=== PATIENT | male | born 2000 | race Caucasian/White ===

== ENCOUNTER 2021-10-09 05:18 | Inpatient (IN) ==
[2021-10-09] MEDS ORDERED: KETOROLAC TROMETHAMINE 15 MG/ML VIAL IV STA (05:25)
[2021-10-09] MEDS ORDERED: ONDANSETRON INJ 2 MG/ML 2 ML VIAL IV STA (05:25)
[2021-10-09] MEDS ORDERED: SODIUM CHLORIDE 0.9% 500 ML IV STA (05:25)
--- NOTE | 2021-10-09 05:42 | Emergency Department Note ---
History of Present Illness General Chief complaint: Flank Pain Stated complaint: LEFT SIDED PAIN,GETTING WORSE,NAUSEA,CHILLS Time Seen by Provider: 10/09/21 05:25 History of Present Illness Maximum Pain Intensity: 7 This 21-year-old presents to the ER complaining of severe left flank pain Location: Left flank Quality: Sharp Severity: Severe Duration: Tonight Timing: Tonight Context: Patient was concerned and came in Modifying factors: better with nothing; worse with nothing Patient denies chest pain, dyspnea, fevers, trauma, loss of bowel bladder control, saddle anesthesia, leg weakness, IV drug abuse. No history of kidney stones. Home Medications Medication Instructions Recorded Confirmed Type oxycodone 5 mg tablet 5 mg PO Q6H PRN #20 tab 10/09/21 Rx tamsulosin 0.4 mg capsule (Flomax) 0.4 mg PO HS #14 cap 10/09/21 Rx Allergies Allergy/AdvReac Type Severity Reaction Status Date / Time No Known Allergies Allergy Unverified 10/09/21 08:15 Past Med/Surg History Medical History No acute medical problems Surgical History No pertinent past surgical history Social History Smoking Status: Never smoker Second Hand Exposure: No; Do You Dip or Chew Tobacco: No; Tobacco Cessation Education Requested by Patient: No Hx Alcohol Use: Yes Alcohol type: beer Hx Substance Use: No Preferred Language: Arabic Communication Ability: Effective Slot Floor Person Required: No Beliefs That Will Affect Care: None Current Living Situation: Alone Other Information That Helps Us Care for You: No Feels Safe at Home: Yes Safety Concerns: Feels Safe At This Time Review of Systems A total of 10 systems reviewed and were otherwise negative Physical Exam Vital Signs Vital Signs - 24 hr 10/09/21 05:22 10/09/21 06:56 10/09/21 09:09 Temperature 36.1 C L 36.8 C Temperature Source Temporal Artery Scan Oral Pulse Rate 110 H 88 Pulse Rate [Right Finger] 74 Pulse Rate from SpO2 Sensor Pulse Rhythm [Right Finger] Pulse Strength [Right Finger] Respiratory Rate 16 16 20 Respiratory Effort / Characteristics Non-Labored Spontaneous Respiratory Depth Normal Blood Pressure 154/104 H 112/64 Blood Pressure [Right Arm] 148/90 H Blood Pressure Mean 120 Blood Pressure Mean [Right Arm] 109 Blood Pressure Position [Right Arm] Sitting Pulse Oximetry 96 97 98 Oxygen Delivery Method Room Air Room Air Room Air Sepsis Recent Fever Within 48 Hours Yes Sepsis New/Unexplained Change in Mental Status No Sepsis Action Taken by Nursing No Action Required 10/09/21 12:31 10/09/21 13:08 10/09/21 13:10 Temperature Temperature Source Pulse Rate 61 59 L Pulse Rate [Right Finger] 76 Pulse Rate from SpO2 Sensor 60 60 Pulse Rhythm [Right Finger] Regular Pulse Strength [Right Finger] Normal Respiratory Rate 20 18 18 Respiratory Effort / Characteristics Non-Labored Respiratory Depth Normal Blood Pressure Blood Pressure [Right Arm] 136/76 Blood Pressure Mean Blood Pressure Mean [Right Arm] 96 Blood Pressure Position [Right Arm] Pulse Oximetry 98 96 96 Oxygen Delivery Method Room Air Sepsis Recent Fever Within 48 Hours Sepsis New/Unexplained Change in Mental Status Sepsis Action Taken by Nursing 10/09/21 13:20 10/09/21 13:30 10/09/21 13:40 Temperature Temperature Source Pulse Rate 62 65 89 Pulse Rate [Right Finger] Pulse Rate from SpO2 Sensor 62 63 87 Pulse Rhythm [Right Finger] Pulse Strength [Right Finger] Respiratory Rate 15 17 24 Respiratory Effort / Characteristics Respiratory Depth Blood Pressure 147/90 H Blood Pressure [Right Arm] Blood Pressure Mean 109 Blood Pressure Mean [Right Arm] Blood Pressure Position [Right Arm] Pulse Oximetry 96 97 97 Oxygen Delivery Method Sepsis Recent Fever Within 48 Hours Sepsis New/Unexplained Change in Mental Status Sepsis Action Taken by Nursing 10/09/21 13:50 10/09/21 14:00 Temperature Temperature Source Pulse Rate 63 65 Pulse Rate [Right Finger] Pulse Rate from SpO2 Sensor 63 64 Pulse Rhythm [Right Finger] Pulse Strength [Right Finger] Respiratory Rate 17 17 Respiratory Effort / Characteristics Respiratory Depth Blood Pressure 145/91 H Blood Pressure [Right Arm] Blood Pressure Mean 109 Blood Pressure Mean [Right Arm] Blood Pressure Position [Right Arm] Pulse Oximetry 96 97 Oxygen Delivery Method Sepsis Recent Fever Within 48 Hours Sepsis New/Unexplained Change in Mental Status Sepsis Action Taken by Nursing VITALS: Vitals are noted on the nurse's note and reviewed by myself. Vital signs stable. GENERAL: Pleasant male who appears in pain, in no acute distress, nondiaphoretic, well-developed well-nourished. SKIN: The skin was without rashes, erythema, edema, or bruising. There is no tenting of the skin. Capillary reflex less than 2 seconds. HEAD: Normocephalic atraumatic. EARS: External auditory canals clear, EYES: Pupils equal round and reactive to light and accommodation. Conjunctivae without injection, sclerae without icterus. Extraocular movements intact. NOSE: Patent, turbinates without inflammation or discharge. MOUTH: Mucous membranes moist. Pharynx without erythema or exudate. Uvula midline. Airway patent. Tongue does not deviate. NECK: Supple without nuchal rigidity. No lymphadenopathy. No thyromegaly. Cervical spine is nontender. No JVD. HEART: Regular rate and rhythm LUNGS: Clear to auscultation bilaterally without wheezes, rales or rhonchi. No retractions or accessory muscle use. ABDOMEN: Positive bowel sounds x 4. Normal tympanic percussion. Soft, nontender, without masses or organomegaly. Becker sign negative. No guarding or rebound tenderness. No CVA tenderness MUSCULOSKELETAL: No muscle atrophy, erythema, or edema noted. NEURO: Patient was alert and oriented to person place and time. Normal sensation to light and sharp touch. No focal neurological deficits. Course Administered Medications Acetaminophen (Acetaminophen 325 Mg Tab) 650 mg PO Q4H PRN PRN Reason: Pain or Fever Stop: 11/08/21 14:29 Last Admin: 10/09/21 18:07 Dose: 650 mg Documented by: [id number] Enoxaparin Sodium (Enoxaparin Inj 40 Mg/0.4 Ml Syr) 40 mg SQ Q24H KELVIN Stop: 11/08/21 14:59 Last Admin: 10/09/21 20:22 Dose: 40 mg Documented by: [id number] Ceftriaxone Sodium 2,000 mg/ (Dextrose) 70 mls @ 140 mls/hr IV Q24H KELVIN Stop: 10/19/21 14:59 Last Admin: 10/09/21 15:39 Dose: 140 mls/hr Documented by: [id number] Sodium Chloride (Nss 1000ml) 1,000 mls @ 125 mls/hr IV .Q8H KELVIN Stop: 11/08/21 14:44 Last Admin: 10/09/21 15:24 Dose: 125 mls/hr Documented by: [id number] Discontinued Medications Fentanyl Citrate (Fentanyl Citrate 100 Mcg/2 Ml Vial) 50 mcg IV Q15M PRN PRN Reason: Pain Stop: 10/23/21 12:13 Last Admin: 10/09/21 12:24 Dose: 50 mcg Documented by: [id number] Sodium Chloride (Nss) 500 mls @ 999 mls/hr IV .Q31M STA Stop: 10/09/21 05:55 Last Infusion: 10/09/21 06:11 Dose: 0 mls/hr Documented by: [id number] Admin: 10/09/21 05:37 Dose: 999 mls/hr Documented by: [id number] Sodium Chloride (Nss 1000ml) 1,000 mls @ 999 mls/hr IV .Q1H1M ONE Stop: 10/09/21 13:14 Last Admin: 10/09/21 12:24 Dose: 999 mls/hr Documented by: [id number] Ketorolac Tromethamine (Ketorolac Tromethamine 15 Mg/Ml Vial) 10 mg IV NOW STA Stop: 10/09/21 05:26 Last Admin: 10/09/21 05:36 Dose: 10 mg Documented by: [id number] Morphine Sulfate (Morphine Sulfate 4 Mg/Ml 1 Ml Carp\Vial) 4 mg IV NOW STA Stop: 10/09/21 06:47 Last Admin: 10/09/21 06:55 Dose: 4 mg Documented by: [id number] Ondansetron HCl (Ondansetron Inj 2 Mg/Ml 2 Ml Vial) 4 mg IV NOW STA Stop: 10/09/21 05:26 Last Admin: 10/09/21 05:36 Dose: 4 mg Documented by: [id number] Ondansetron HCl (Ondansetron 4 Mg Od Tab) 4 mg PO NOW STA Stop: 10/09/21 10:32 Last Admin: 10/09/21 10:35 Dose: 4 mg Documented by: [id number] Tamsulosin HCl (Tamsulosin Hcl 0.4 Mg Cap) 0.4 mg PO NOW ONE Stop: 10/09/21 06:46 Last Admin: 10/09/21 06:56 Dose: 0.4 mg Documented by: [id number] Medical Decision Making Medical Records Attestation: I reviewed the patient's medical records. Home Medications Current Medication List: was personally reviewed by me Laboratory Data Attestation: I reviewed the patient's lab results. Result diagrams: 10/09/21 05:35 10/09/21 05:35 Lab Results 10/09/21 10/09/21 10/09/21 Range/Units 05:35 05:35 05:35 WBC 16.17 H (4.8-10.8) K/uL RBC 4.80 (4.7-6.1) M/uL Hgb 14.9 (14.0-18.0) g/dL Hct 42.8 (42-52) % MCV 89.2 (80-100) fL MCH 31.0 (25-34) pg MCHC 34.8 (32-36) g/dL RDW Std Deviation 40.3 (36.4-46.3) fL RDW Coeff of Reji 12.4 (11.5-14.5) % Plt Count 282 (130-400) K/uL MPV 9.4 (7.4-10.4) fL Sodium 137 (136-145) mmol/L Potassium 3.8 (3.5-5.1) mmol/L Chloride 104 (98-107) mmol/L Carbon Dioxide 22 (21-32) mmol/L Anion Gap 11 (3-11) BUN 16 (6-23) mg/dl Creatinine 1.11 (0.6-1.4) mg/dl Est Cr Clr Drug Dosing 120.3 ml/min Est GFR ( Amer) 107.9 ml/min Est GFR (Non-Af Amer) 93.1 ml/min BUN/Creatinine Ratio 14.4 (10-20) Glucose 119 H (70-99(Fasting)) mg/dl Calcium 9.5 (8.5-10.1) mg/dl Urine Color Yellow Urine Appearance Cloudy A (Clear) Urine pH 5.5 (4.5-7.5) Ur Specific Lyman 1.026 (1.000-1.030) Urine Protein 1+ H (Negative) Urine Glucose (UA) Negative (Negative) Urine Ketones Trace H (Negative) Urine Blood 2+ H (Negative) Urine Nitrite Negative (Negative) Urine Bilirubin Negative (Negative) Urine Urobilinogen Negative (Negative) Ur Leukocyte Esterase Negative (Negative) Urine WBC (Auto) 1-5 (0-5) /hpf Urine RBC (Auto) 10-30 H (0-4) /hpf U Hyaline Cast (Auto) 0 (0-5) /lpf U Epithel Cells (Auto) >30 H (0-5) /lpf Urine Bacteria (Auto) 1+ H (Negative) Ur Renal Epithelial Cell Not Reportable Urine Crystals Not Reportable Calcium Oxalate Crystal Present A (None Prsent) Urine Mucus Present A (None Prsent) SARS-CoV-2, RNA, NAAT (NEGATIVE) 10/09/21 Range/Units 06:58 WBC (4.8-10.8) K/uL RBC (4.7-6.1) M/uL Hgb (14.0-18.0) g/dL Hct (42-52) % MCV (80-100) fL MCH (25-34) pg MCHC (32-36) g/dL RDW Std Deviation (36.4-46.3) fL RDW Coeff of Reji (11.5-14.5) % Plt Count (130-400) K/uL MPV (7.4-10.4) fL Sodium (136-145) mmol/L Potassium (3.5-5.1) mmol/L Chloride (98-107) mmol/L Carbon Dioxide (21-32) mmol/L Anion Gap (3-11) BUN (6-23) mg/dl Creatinine (0.6-1.4) mg/dl Est Cr Clr Drug Dosing ml/min Est GFR ( Amer) ml/min Est GFR (Non-Af Amer) ml/min BUN/Creatinine Ratio (10-20) Glucose (70-99(Fasting)) mg/dl Calcium (8.5-10.1) mg/dl Urine Color Urine Appearance (Clear) Urine pH (4.5-7.5) Ur Specific Lyman (1.000-1.030) Urine Protein (Negative) Urine Glucose (UA) (Negative) Urine Ketones (Negative) Urine Blood (Negative) Urine Nitrite (Negative) Urine Bilirubin (Negative) Urine Urobilinogen (Negative) Ur Leukocyte Esterase (Negative) Urine WBC (Auto) (0-5) /hpf Urine RBC (Auto) (0-4) /hpf U Hyaline Cast (Auto) (0-5) /lpf U Epithel Cells (Auto) (0-5) /lpf Urine Bacteria (Auto) (Negative) Ur Renal Epithelial Cell Urine Crystals Calcium Oxalate Crystal (None Prsent) Urine Mucus (None Prsent) SARS-CoV-2, RNA, NAAT NEGATIVE (NEGATIVE) Imaging Data Attestation: I personally reviewed and interpreted this imaging study as follows: MDM Narrative Prior records/ancillary studies reviewed. Triage Nursing notes reviewed. Additional history obtained from nursing The patient's history was concerning for flank pain. Differential diagnosis: Etiologies such as renal colic, appendicitis, diverticulitis, mesenteric ische silvano, aortic pathology, infections, inflammatory bowel disease, PUD, biliary pathology, UTI, as well as others were entertained. Physical examination findings: As above. ER treatment provided: Toradol, Zofran, IV fluids, Flomax, morphine On reassessment the patient felt better. Diagnostic interpretation by me: The labs revealed leukocytosis. Urinalysis revealed There was no sign of UTI. Imaging studies: Preliminary Findings Only See Final Report For Complete Findings CT ABDOMEN & PELVIS Without Contrast: Obstructive 5 x 4 x 4 mm calculus within the left ureterovesicular junction (not definitively seen on credit collections manager imaging). Associated with this is moderate to severe left renal hydronephrosis with dilatation of the left renal collecting system, most prominently the left renal pelvis. Nonobstructive left calculus within the left renal pelvis measuring 4 mm. Additional nonobstructive left renal calculi noted. Normal appendix. No other acute findings. Radiologist: Dirk Yañez MD Study ready at 05:57 and initial results transmitted at 06:44 Consultation: Medicine was consulted. They request urology be consulted for admission. I spoke with Dr. Hurst from urology and will evaluate for possible admission. It appears that the patient has isolated renal colic from a left sided stone. Patient was medicated as above. He had moderate to severe left renal hydro-. Medicine was consulted. He will be evaluated for admission. By the evaluation outlined above emergent etiologies such as appendicitis, diverticulitis, mesenteric ischemia, aortic pathology, infections, inflammatory bowel disease, PUD, biliary pathology, UTI, as well as others were deemed relatively unlikely. The pt informed about the findings as listed above. All questions were answered and pleased with the treatment. Case signed out to Dr. De La Cruz pending urology evaluation at the end of my shift in stable condition. The chart was completed utilizing [employer] Speech voice recognition software. Grammatical errors, random word insertions, pronoun errors, and incomplete sentences are an occassional consequence of this system due to software limitations, ambient noise, and hardware issues. Any formal questions or concerns about the content, text, or information contained within the body of this dictation should be directly addressed to the physician press assistant for clarification. Impression & Plan Renal colic on left side, Ureterolithiasis, Hydronephrosis Discharge Plan Visit Data Chief Complaint: Flank Pain Stated Complaint: LEFT SIDED PAIN,GETTING WORSE,NAUSEA,CHILLS ED Provider: Anson De La Cruz ED Midlevel Provider: Senait Marinelli Discharge Problem: Renal colic on left side, Ureterolithiasis, Hydronephrosis Patient Disposition: Home - Self-Care Condition: Good Discharge Instructions Interventions: ED Discharge Assessment Last Done: 10/09/21 14:30 Discharge Problem: Hydronephrosis Qualifiers: Hydronephrosis type: with ureteral calculous obstruction Qualified Code(s): N13.2 - Hydronephrosis with renal and ureteral calculous obstruction
[2021-10-09 05:45] LABS: Hematocrit (blood only) 42.8 % (42-52); Hemoglobin 14.9 g/dL (14.0-18.0); Mean Corpuscular Hgb Conc 34.8 g/dL (32-36); Mean Corpuscular Volume 89.2 fL (80-100); Mean Platelet Volume 9.4 fL (7.4-10.4); Platelet Count 282 K/uL (130-400); RDW Coefficient of Variation 12.4 % (11.5-14.5); RDW Standard Deviation 40.3 fL (36.4-46.3); White Blood Count 16.17 K/uL (4.8-10.8)
[2021-10-09 05:58] LABS: Appearance Urine Cloudy (Clear); Bilirubin Urine Negative (Negative); Blood Urine 2+ (Negative); Color Urine Yellow; Epithelial Cell Urine Auto >30 /lpf (0-5); Glucose Urine UA Negative (Negative); Ketones Urine Trace (Negative); Leukocyte Esterase Urine Negative (Negative); Nitrite Urine Negative (Negative); Protein Urine 1+ (Negative); Specific Gravity Urine 1.026 (1.000-1.030); Urobilinogen Urine Negative (Negative); pH Urine 5.5 (4.5-7.5)
[2021-10-09 06:06] LABS: BUN Creatinine Ratio 14.4 (10-20); Calcium 9.5 mg/dl (8.5-10.1); Creatinine Clr Calc Pharmacy 120.3 ml/min; Est GFR (African American) 107.9 ml/min; Est GFR (Non-African American) 93.1 ml/min; Potassium 3.8 mmol/L (3.5-5.1)
[2021-10-09 06:21] LABS: Calcium Oxalate Crystals Urine Present (None Prsent); Mucus Urine Present (None Prsent)
[2021-10-09 06:22] LABS: Bacteria Urine Automated 1+ (Negative); Cast Urine Automated 0 /lpf (0-5)
[2021-10-09] MEDS ORDERED: TAMSULOSIN HCL 0.4 MG CAP PO ONE (06:45)
[2021-10-09] MEDS ORDERED: MoRPHine SULFATE 4 MG/ML 1 ML CARP\\VIAL IV STA (06:46)
--- NOTE | 2021-10-09 07:37 | Emergency Department Note ---
ED Visit Note In the emergeI received this patient in change of shift signout from Senait Marinelli PA-C. The patient is awaiting urology evaluation. I discussed the case with Jeaneth who is on-call for urology. Dr. Hurst was consulted and they will evaluate the patient in the emergency department. The patient is comfortable this time. The patient was evaluated by department. His laboratory and radiographic studies were reviewed. The patient does seem to be amenable to outpatient follow-up at this time. I do agree with this assessment. The patient was started on a pain medication. He was encouraged to follow-up with urology and call to schedule an appointment. He was also encouraged to continue using Motrin and Tylenol for mild pain and return to the emergency department immediately if symptoms change worsen or the need arises. Specifically I did recommend he return if he develops severe pain vomiting fever or any other worrisome symptoms. The patient did have an episode of syncope upon standing after discharge. The patient was laid back into the bed. He was given some Gatorade to drink. He was reevaluated and was feeling much better. The patient was still able to be discharged to home. [id number]: I discussed this case with Dr. Hurst who is on for urology. He will follow the patient in consultation. 1255: I discussed this case with Dr. Song who is on-call for the [facility] hospitalist group. They will evaluate the patient in the emergency department. They did request an EKG given the syncopal episode. EKG was obtained in the emergency department. My interpretation is normal sinus rhythm at 64 bpm. There is no ectopy. There is no acute ST segment abnormalities noted. . : Hydronephrosis Qualifiers: Hydronephrosis type: with ureteral calculous obstruction Qualified Code(s): N13.2 - Hydronephrosis with renal and ureteral calculous obstruction
--- NOTE | 2021-10-09 07:42 | CT Scan Report ---
ABDOMEN AND PELVIS CT WITHOUT CONTRAST CT DOSE: 396.66 mGy.cm HISTORY: Acute left-sided flank pain with nausea left flank pain, ? stone TECHNIQUE: Multiaxial CT images of the abdomen and pelvis were performed without contrast. A dose lo wering technique was utilized adhering to the principles of ALARA. COMPARISON STUDY: None. FINDINGS: Clear lung bases. No pneumatosis or pneumoperitoneum. The imaged inferior cardiac chambers are unrema rkable. Limited evaluation of the solid abdominal organs without the use of IV contrast. The spleen i s enlarged measuring up to 14.9 cm in length. Unremarkable pancreas, gallbladder, adrenal glands and liver. Normal right kidney. There is severe left-sided hydronephrosis with moderate hydroureter. There is an obstructing 7 x 4 x 4 mm calculus within the left ureterovesicular junction. 4 mm layering calculus within the left renal pelvis. 5 mm calculus of the interpolar left kidney. There are 2 large calculi noted within the inferior pole left kidney measuring 1.8 and 1.6 cm respectively. Mild perinephric an d periureteral stranding. Decompressed urinary bladder. Unremarkable prostate. Aorta and IVC are unre markable. No adenopathy. No bowel obstruction or bowel wall thickening. No ascites or mesenteric inflammation. Normal appendix . Mild gynecomastia. Mild endplate degenerative changes of the lower thoracic and upper lumbar spine. No acute fracture. IMPRESSION: 1. Severe left-sided hydronephrosis with moderate hydroureter secondary to an obstructing 7 x 4 x 4 m m calculus within the left ureterovesicular junction. 2. 4 mm calculus of the left renal pelvis with additional large nonobstructing left renal calculi. ACT 112: Negative or not required by law. The above report was generated using voice recognition software. It may contain grammatical, syntax o r spelling errors. Electronically signed by: Renard Anthony M.D. 10/09/2021 7:41 AM
[2021-10-09] MEDS ORDERED: ONDANSETRON 4 MG OD TAB PO STA (10:31)
--- NOTE | 2021-10-09 11:48 | Urology Consultation ---
Date of Consultation October 09, 2021 Assessment & Plan (1) Ureterolithiasis: (2) Hydronephrosis: (3) Renal colic on left side: 21yo M who presented with severe left flank pain and was found to have a calculus within the left UVJ with severe left-sided hydronephrosis with moderate hydroureter. - Plan of care and imaging reviewed with Dr. Hurst, on-call urologist. - Pt is afebrile, VSS, non-toxic appearing. - Labs reviewed - Wbc 16.17, Creatinine 1.11 - Urinalysis not overly suspicious for infection, UC&S pending. - Discussed options for acute stone management with cystoscopy and stent placement. Outpatient options for conservative measures with max expulsion medical therapy and symptom control were also discussed. - Discussed stone passage rates and possibility of spontaneous passage given stone size and location. - Risks/benefits of each discussed. - Patient prefers outpatient trial of passage with max expulsion therapy and monitoring of symptoms. - Will plan to f/u with our service in 1-2 weeks for definitive stone management and follow-up with discussion of procedure given he does not pass the stone in the meantime. - Recommend discharge with flomax, pain control, and urine strainer. - Encouraged liberal hydration and to strain all urine. - Reviewed in detail signs/symptoms that would warrant return to the hospital, patient verbalized an understanding. - Patient agreeable to plan, all questions were answered. - On discharge in ED, patient stood up and had a near syncopal episode. - Hospitalist service was consulted and pt was admitted for further evaluation. - No intervention planned for today. - Continue hydration, pain management, Flomax, and straining of all urine. - Will make NPO at midnight and will reassess in AM. - Will continue to follow. Supervising Physician Co-Signing Physician Notes I have discussed Mr. Magana's case with ESPERANZA Hernandez and agree with the above documentation. There appears to be a narrow, obstructing stone in the distal ureter, just at the junction with the bladder. There is no evidence of infection. His pain can be controlled we had discussed be reasonable to give him a chance to pass a stone spontaneously. Unfortunately he had a syncopal episode as well as return of pain prior to going home. If he is still having pain on 10/10, it would be reasonable to discuss stone treatment/stent placement. He has additional stone burden up in his left kidney, as well as findings that raise suspicion for UPJ obstruction. He may be a candidate for pyeloplasty in the future, however this can be discussed with him once he is through this acute stone event. He is n.p.o. at midnight in anticipation of possible intervention on 10/10. History of Present Illness Reason for Consultation: kidney stone Requesting Physician: Dr. De La Cruz History of Present Illness 21yo M with no significant past medical history who reported to the ED this morning with severe left flank pain. A CT abdomen pelvis was obtained and remarkable for a calculus within the left UVJ with severe left-sided hydronephrosis with moderate hydroureter. On presentation - Afebrile, Wbc 16.17, Creatinine 1.11. Urinalysis with 2+blood, negative nitrite, negative leukocytes, 1-5WBC, 10-30RBC, 1+Bacteria. Urine culture pending. Covid test negative. He was treated with IVF, analgesics, and antiemetics. Urology consulted for stone management. CTAP IMPRESSION: 1. Severe left-sided hydronephrosis with moderate hydroureter secondary to an obstructing 7 x 4 x 4 mm calculus within the left ureterovesicular junction. 2. 4 mm calculus of the left renal pelvis with additional large nonobstructing left renal calculi. Pt examined at bedside in the ED. Awake, resting in bed on arrival. No acute distress. Reports left flank pain, currently rates 4/10. Pain has improved significantly with pain medication. Denies fever or chills. No nausea or vomiting at present. He does report vomiting once overnight when the pain first started. Voiding without issue. Some urinary urgency and frequency. Denies hematuria. Some mild dysuria. Feels he is emptying his bladder. Denies prior hx of kidney stones. He does report that as a child he had "an issue with his ureter" but was unsure of any further details. He denies prior surgeries or seeing a Urologist. Denies hx of kidney or bladder issues. Denies pertinent family hx. Offers no additional complaints at time of exam. Allergies Allergy/AdvReac Type Severity Reaction Status Date / Time No Known Allergies Allergy Unverified 10/09/21 08:15 Home Medications Medication Instructions Recorded Confirmed Type oxycodone 5 mg tablet 5 mg PO Q6H PRN #20 tab 10/09/21 Rx tamsulosin 0.4 mg capsule (Flomax) 0.4 mg PO HS #14 cap 10/09/21 Rx Patient History Medical History No acute medical problems Surgical History No pertinent past surgical history Social History Smoking Status: Never smoker Second Hand Exposure: No; Do You Dip or Chew Tobacco: No; Tobacco Cessation Education Requested by Patient: No Hx Alcohol Use: Yes Alcohol type: beer Hx Substance Use: No Preferred Language: Kinyarwanda Communication Ability: Effective Lumber Checker Required: No Beliefs That Will Affect Care: None Current Living Situation: Alone Other Information That Helps Us Care for You: No Feels Safe at Home: Yes Safety Concerns: Feels Safe At This Time Review of Systems Review of Systems: All systems reviewed & are unremarkable except as noted in HPI & below Physical Exam Constitutional: well developed and well nourished; no acute distress and not ill appearing Neck: normal visual inspection Respiratory: normal respiratory effort and able to speak in complete sentences; no labored breathing and no audible wheezes Gastrointestinal (Abdomen): Inspection/Auscultation: abdomen normal to inspection; abdomen not distended Percussion/Palpation: abdomen soft; abdomen nontender and no guarding Musculoskeletal: Head/Neck/Chest: normocephalic Skin: No visible rashes or lesions to exposed skin areas Neurologic: moves all extremities and awake Psychiatric: Orientation: alert, oriented x 3 and cooperative Genitourinary: no CVA tenderness Results & Data ([facility]) Vital Signs (Past 12 Hours) Vital Signs Temp Pulse Pulse Resp BP BP Pulse Ox 10/09/21 09:09 36.8 C 88 20 112/64 98 10/09/21 06:56 74 16 148/90 H 97 10/09/21 05:22 36.1 C L 110 H 16 154/104 H 96 PG Care Time/CCT Total # of Minutes Spent Total Time Spent with Patient: Total time spent is greater than 50% in coordination of care (as documented) at patient's floor/unit and/or counseling patient: Coding Level of Care Code 29770 Inpt Consult Level 3 Diagnoses Ureterolithiasis N20.1 Hydronephrosis N13.2 Hydronephrosis type: with ureteral calculous obstruction Renal colic on left side N23 (1) Hydronephrosis Hydronephrosis type: with ureteral calculous obstruction Qualified Code(s): N13.2 - Hydronephrosis with renal and ureteral calculous obstruction
[2021-10-09] MEDS ORDERED: SODIUM CHLORIDE 0.9% 1000ML 1,000 ML IV ONE (12:14)
[2021-10-09] MEDS ORDERED: fentaNYL citrate 100 MCG/2 ML VIAL IV PRN (12:14)
--- NOTE | 2021-10-09 13:59 | History & Physical Report ---
Date of Service October 09, 2021 Assessment & Plan (1) Ureterolithiasis: Plan: -WBC 16.17, creatinine 1.11. Urinalysis not overly suspicious for infection, urine C&S pending. -CTAP showed severe left sided hydronephrosis and moderate hydroureter secondary to an obstructing 7 x 4 x 4 mm calculus with left ureterovesical junction. 4 mm calculus of the left renal pelvis with additional large nonobstructing left renal calculi. -Urology was consulted and has seen patient, recommending flomax, pain control, and urine strainer. -Tylenol and Toradol for pain control. -Started on Rocephin for possible infection/in anticipation of potential need for stent. -N.p.o. midnight. -NS IVF for maintenance. (2) Pre-syncope: Plan: -In the setting of pain, dehydration. Patient states he felt dizzy and nauseous upon standing, did not fall, lose consciousness. -EKG revealed normal sinus rhythm. -Echo ordered. Plan: Patient seen and examined, chart reviewed, case discussed with Paula Whyte and I agree with the assessment and plan as above except as otherwise noted General: A&Ox3. NAD. Cooperative. Appears uncomfortable HEENT: Atraumatic, normocephalic. Vision/hearing grossly intact. Pulm: CTAB A&P. -wheezes, -rales, -rhonchi. Symmetrical chest rise. No increase in work of breathing. No respiratory distress. Cardiac: RRR, -mrg. Radial pulses intact and symmetrical. Abdominal: Left flank pain, no rebound, with left CVA tenderness. No right-sided tenderness. No involuntary guarding. Labs and images reviewed Raj is a 21-year-old male who presents with left-sided abdominal pain and who was found on CT to have severe left-sided hydronephrosis, moderate hydroureter, and an obstructing 7 x 4 x 4 mm calculus at the left UVJ. Additional 4 mm calculus in left renal pelvis. Does have a leukocytosis to 16 without vomiting and UA with 2+ blood, 1+ bacteria. ?contamination with epis and demargination, will add empiric coverage with rocephin UC pending., possible stend placement tomorrow. NPO at midnight, discussed with Urology. Continue fluids and flomax. History of Present Illness Chief Complaint: Nephrolithiasis with near syncope Primary Care Provider: [facility] Patient is a previously healthy 21-year-old male who presents today with severe left flank pain and was found to have calculus within the left UVJ with severe left-sided hydronephrosis with moderate hydroureter. Urology was consulted and saw patient, recommend discharge with Flomax, pain control and urine strainer. On discharge, patient stood up and had a near syncopal episode. Patient states he felt dizzy and nauseous, but did not pass out. Patient was assisted back onto the bed and giving Gatorade, which he was able to keep down. Patient is feeling much better. Hospitalist service was consulted for evaluation and admission. EKG was crested which shows normal sinus rhythm, 64 bpm, no ectopy, no acute ST segment abnormalities. Patient states he has had occasional moments similar to this upon standing after being seated for some time. Denies cardiac history, denies chest pain, palpitations, shortness of breath, headache, dizziness. States he was feeling quite nauseous and experiencing mid pain at that time. Allergies Allergy/AdvReac Type Severity Reaction Status Date / Time No Known Allergies Allergy Unverified 10/09/21 08:15 Home Medications Medication Instructions Recorded Confirmed Type oxycodone 5 mg tablet 5 mg PO Q6H PRN #20 tab 10/09/21 Rx tamsulosin 0.4 mg capsule (Flomax) 0.4 mg PO HS #14 cap 10/09/21 Rx Past Med/Surg History Medical History No acute medical problems Surgical History No pertinent past surgical history Social History Smoking Status: Never smoker Second Hand Exposure: No; Do You Dip or Chew Tobacco: No; Tobacco Cessation Education Requested by Patient: No Hx Alcohol Use: Yes Alcohol type: beer Hx Substance Use: No Preferred Language: Frisian Communication Ability: Effective Spa Receptionist Required: No Beliefs That Will Affect Care: None Current Living Situation: Alone Other Information That Helps Us Care for You: No Feels Safe at Home: Yes Safety Concerns: Feels Safe At This Time Review of Systems Review of Systems: Constitutional: No fever, sweats or chills Eyes: No diplopia, no worsening or blurred vision ENT: normal hearing, no trouble swallowing Respiratory: No cough, sputum, dyspnea at rest or on exertion Cardiovascular: No chest pain, tightness or palpitations Abdomen: No pain, nausea, vomiting, diarrhea or constipation Musculoskeletal: No joint pain, calf pain, swelling Neurologic: No weakness, numbness/tingling, or balance problems Psychiatric: No anxiety or depression Skin: No rash or itch Physical Exam Physical Exam: General: awake, alert, no apparent distress Head: Normocephalic, atraumatic ENT: PERRL, EOMI, no pharyngeal exudate, mucous membranes moist Chest: Clear to auscultation, on room air, no adventitious breath sounds Cardiac: Regular rate and rhythm, no murmur, no JVD, normal peripheral pulses, good capillary refill Abdominal: (+) L CVA tenderness. NABS x 4 quadrants, soft, nontender to palpation, no rebound, guarding or tenderness Extremities: Normal inspection, no peripheral edema or erythema, calfs nontender to palpation Psych: Normal mood and affect Neuro: AAO x 3, strength intact bilaterally and rated 5/5, no motor deficits, speech is clear, no peripheral sensory deficits Skin: no rash or erythema Results & Data Results & Data ([facility]) Vital Signs (Past 12 Hours) Vital Signs Temp Pulse Pulse Resp BP BP Pulse Ox 10/09/21 12:31 76 20 136/76 98 10/09/21 09:09 36.8 C 88 20 112/64 98 10/09/21 06:56 74 16 148/90 H 97 10/09/21 05:22 36.1 C L 110 H 16 154/104 H 96 Laboratory Results Abnormal lab results 10/09/21 10/09/21 10/09/21 Range/Units 05:35 05:35 05:35 WBC 16.17 H (4.8-10.8) K/uL Glucose 119 H (70-99(Fasting)) mg/dl Urine Appearance Cloudy A (Clear) Urine Protein 1+ H (Negative) Urine Ketones Trace H (Negative) Urine Blood 2+ H (Negative) Urine RBC (Auto) 10-30 H (0-4) /hpf U Epithel Cells (Auto) >30 H (0-5) /lpf Urine Bacteria (Auto) 1+ H (Negative) Calcium Oxalate Crystal Present A (None Prsent) Urine Mucus Present A (None Prsent) Diagnostic Findings Abdomen/Pelvis CT 10/09/21 05:[address] WITHOUT CONTRAST CT DOSE: 396.66 mGy.cm HISTORY: Acute left-sided flank pain with nausea left flank pain, ? stone TECHNIQUE: Multiaxial CT images of the abdomen and pelvis were performed without contrast. A dose lowering technique was utilized adhering to the principles of ALARA. COMPARISON STUDY: None. FINDINGS: Clear lung bases. No pneumatosis or pneumoperitoneum. The imaged inferior cardiac chambers are unremarkable. Limited evaluation of the solid abdominal organs without the use of IV contrast. The spleen is enlarged measuring up to 14.9 cm in length. Unremarkable pancreas, gallbladder, adrenal glands and liver. Normal right kidney. There is severe left-sided hydronephrosis with moderate hydroureter. There is an obstructing 7 x 4 x 4 mm calculus within the left ureterovesicular junction. 4 mm layering calculus within the left renal pelvis. 5 mm calculus of the interpolar left kidney. There are 2 large calculi noted within the inferior pole left kidney measuring 1.8 and 1.6 cm respectively. Mild perinephric and periureteral stranding. Decompressed urinary bladder. Unremarkable prostate. Aorta and IVC are unremarkable. No adenopathy. No bowel obstruction or bowel wall thickening. No ascites or mesenteric inflammation. Normal appendix. Mild gynecomastia. Mild endplate degenerative changes of the lower thoracic and upper lumbar spine. No acute fracture. IMPRESSION: 1. Severe left-sided hydronephrosis with moderate hydroureter secondary to an obstructing 7 x 4 x 4 mm calculus within the left ureterovesicular junction. 2. 4 mm calculus of the left renal pelvis with additional large nonobstructing left renal calculi. Medications Administered Current Medications Fentanyl Citrate (Fentanyl Citrate 100 Mcg/2 Ml Vial) 50 mcg IV Q15M PRN PRN Reason: Pain Stop: 10/23/21 12:13 Last Admin: 10/09/21 12:24 Dose: 50 mcg Documented by: ECG Additional Comments: Normal sinus rhythm Normal ECG No previous ECGs available Code Status & VTE Plan Code Status Full code PG Care Time/CCT Total # of Minutes Spent Total Time Spent with Patient: Total time spent is greater than 50% in coordination of care (as documented) at patient's floor/unit and/or counseling patient: Coding Level of Care Code None Diagnoses Ureterolithiasis N20.1 Pre-syncope R55
[2021-10-09] MEDS ORDERED: cefTRIAXone SODIUM 1,000 MG in DEXTROSE 5% 50 ML IV SCH (14:30)
[2021-10-09] MEDS ORDERED: LACTATED RINGER'S 1,000 ML IV SCH (14:30)
[2021-10-09] MEDS ORDERED: KETOROLAC TROMETHAMINE 10 MG TABLET PO PRN (14:30)
[2021-10-09] MEDS ORDERED: ONDANSETRON INJ 2 MG/ML 2 ML VIAL IV PRN (14:30)
[2021-10-09] MEDS ORDERED: POLYETHYLENE (MIRALAX) 17 GM PACK PO PRN (14:30)
[2021-10-09] MEDS: SODIUM CHLORIDE 0.9% 1000ML 1,000 ML IV SCH ×2 (15:24→23:37)
--- NOTE | 2021-10-09 15:31 | Electrocardiogram Report ---
Test Reason : Blood Pressure : / mmHG Vent. Rate : 064 BPM Atrial Rate : 064 BPM P-R Int : 148 ms QRS Dur : 086 ms QT Int : 416 ms P-R-T Axes : 058 043 047 degrees QTc Int : 429 ms Normal sinus rhythm Normal ECG No previous ECGs available Confirmed by Brendan Diaz ([id number]) on 10/09/2021 3:31:13 PM Referred By: REFERRED SELF Confirmed By:Brendan Diaz
[2021-10-09] MEDS: cefTRIAXone SODIUM 2,000 MG in DEXTROSE 5% 50 ML IV SCH (15:39)
[2021-10-09] MEDS: ACETAMINOPHEN 325 MG TAB PO PRN ×2 (18:07→21:38)
[2021-10-09] MEDS: ENOXAPARIN INJ 40 MG/0.4 ML SYR SQ SCH (20:22)
[2021-10-10] MEDS: ACETAMINOPHEN 325 MG TAB PO PRN (06:31)
[2021-10-10 06:45] LABS: Basophils # (auto) 0.01 K/uL (0-0.2); Basophils % (auto) 0.1 %; Hematocrit (blood only) 37.4 % (42-52); Hemoglobin 12.7 g/dL (14.0-18.0); Immature Granulocytes # (auto) 0.02 K/uL (0.00-0.02); Immature Granulocytes % (auto) 0.2 %; Lymphocytes # (auto) 1.25 K/uL (1.2-3.4); Lymphocytes % (auto) 11.2 %; Mean Corpuscular Hemoglobin 30.3 pg (25-34); Mean Corpuscular Volume 89.3 fL (80-100); Mean Platelet Volume 9.4 fL (7.4-10.4); Monocytes # (auto) 0.82 K/uL (0.11-0.59); Monocytes % (auto) 7.3 %; Neutrophils % (auto) 81.2 %; Platelet Count 198 K/uL (130-400); RDW Coefficient of Variation 12.4 % (11.5-14.5); Red Blood Count 4.19 M/uL (4.7-6.1)
[2021-10-10 07:12] LABS: BUN Creatinine Ratio 6.2 (10-20); Calcium 8.5 mg/dl (8.5-10.1); Creatinine Clr Calc Pharmacy 91.5 ml/min; Est GFR (African American) 77.5 ml/min; Est GFR (Non-African American) 66.8 ml/min; Potassium 3.7 mmol/L (3.5-5.1)
[2021-10-10] MEDS: SODIUM CHLORIDE 0.9% 1000ML 1,000 ML IV SCH ×2 (08:00→19:08)
--- NOTE | 2021-10-10 08:35 | XCELERA ---
[id number]
--- NOTE | 2021-10-10 08:39 | Urology Progress Note ---
Date of Service October 10, 2021 Assessment & Plan (1) Ureterolithiasis: (2) Hydronephrosis: (3) Renal colic on left side: Plan: 21yo M who presented with severe left flank pain and was found to have a calculus within the left UVJ with severe left-sided hydronephrosis with moderate hydroureter. Patient had elected outpatient trial of passage, but had a near syncopal episode in the ED yesterday at discharge and was admitted by hospital medicine for further evaluation. - No stone passage noted overnight. - Still with left flank pain, has been managing with PO Tylenol. - Remains afebrile, VSS, non-toxic appearing. - Labs reviewed - White count 11.20, Creatinine up to 1.46 today (1.11 yesterday) - Continue to trend - Urinalysis not overly suspicious for infection, urine C&S pending - Continues on IV Ceftriaxone - Discussed options for acute stone management with cystoscopy, stent placement, possible stone treatment verse trial of passage with maximum expulsion therapy and symptom control. Risks/benefits of each discussed. Ureteral stent were di scussed as well as well as post-operative issues and pain management. - Patient prefers to proceed with surgical intervention. - Findings reviewed with Dr. Julien. Given his persistent left flank pain and [place] in the context of an obstructing left UVJ stone, will proceed with OR for cystoscopy, left retrograde pyelogram, left ureteral stent placement, possible ureteroscopy, laser lithotripsy/stone treatment depending on findings. - Risks and benefits to be reviewed with patient by Dr. Julien. - OR notified. Covered with scheduled IV Ceftriaxone. Covid test negative. - Keep NPO. - Strain all urine. - Continue supportive care and pain management. - Will continue to follow. Admission and Anticipated Discharge Date Admission Date: October 09, 2021 Subjective Pt examined at bedside this AM. Awake, resting in bed on arrival. No acute distress. Still with left flank pain, rates pain 1/10 at present. Managing pain with PO Tylenol. Denies stone passage. Has been NPO. Voiding without issues. No hematuria, some dysuria. Denies nausea or vomiting. No fever or chills. Denies dizziness/lightheadedness. Review of Systems Constitutional: as per Subjective / HPI Gastrointestinal: as per Subjective / HPI Genitourinary: + as per Subjective / HPI Physical Exam Constitutional: well developed and well nourished; no acute distress and not ill appearing Neck: normal visual inspection Respiratory: normal respiratory effort and able to speak in complete sentences; no labored breathing and no audible wheezes Gastrointestinal (Abdomen): Inspection/Auscultation: abdomen normal to inspection; abdomen not distended Musculoskeletal: Head/Neck/Chest: normocephalic Skin: No visible rashes or lesions to exposed skin areas Neurologic: moves all extremities and awake Psychiatric: Orientation: alert, oriented x 3 and cooperative Genitourinary: no CVA tenderness Results & Data ([facility]) Vital Signs (Past 12 Hours) Vital Signs Temp Pulse Pulse Resp BP Pulse Ox 10/10/21 07:04 36.5 C 93 H 18 133/72 97 10/10/21 03:30 37.4 C 89 18 147/89 H 97 10/09/21 23:09 36.9 C 84 18 133/78 98 10/09/21 22:18 56 L PG Care Time/CCT Total # of Minutes Spent Total Time Spent with Patient: Total time spent is greater than 50% in coordination of care (as documented) at patient's floor/unit and/or counseling patient: Coding Level of Care Code 03981 Subseq Hosp Care Lvl 2 Diagnoses Ureterolithiasis N20.1 Hydronephrosis N13.2 Hydronephrosis type: with ureteral calculous obstruction Renal colic on left side N23 (1) Hydronephrosis Hydronephrosis type: with ureteral calculous obstruction Qualified Code(s): N13.2 - Hydronephrosis with renal and ureteral calculous obstruction
--- NOTE | 2021-10-10 11:40 | Anesthesiology Consultation ---
Date of Service October 10, 2021 Assessment & Plan (1) Encounter for pre-operative examination: Chart Review Chart Review: Acceptable Risk for Surgery and Patient NOT seen in Pre Admission Testing Consults Requested none History Surgery Operation Date: 10/10/21 07:50 Proposed Procedures p Cystoscopy, Retrograde Pyelogram, Left Stent Placement, Possible Ureteroscopy, Laser Lithotripsy Stone Treatment - Edilberto Julien MD Height/Weight Height: 6 ft 2 in Weight: 86.1 kg Allergies Allergy/AdvReac Type Severity Reaction Status Date / Time No Known Allergies Allergy Unverified 10/09/21 08:15 Medications Home Medications Medication Instructions Recorded Confirmed Last Taken oxycodone 5 mg tablet 5 mg PO Q6H PRN #20 tab 10/09/21 Unknown tamsulosin 0.4 mg capsule (Flomax) 0.4 mg PO HS #14 cap 10/09/21 Unknown Active Medications Generic Name Dose Route Start Last Admin Trade Name Freq PRN Reason Stop Dose Admin Acetaminophen 650 mg 10/09/21 14:30 10/10/21 06:31 Acetaminophen 325 Mg Tab PO 11/08/21 14:29 650 mg Q4H PRN Administration Pain or Fever Enoxaparin Sodium 40 mg 10/09/21 15:00 10/09/21 20:22 Enoxaparin Inj 40 Mg/0.4 Ml Syr SQ 11/08/21 14:59 40 mg Q24H KELVIN Administration Ceftriaxone Sodium 2,000 mg/ 70 mls @ 140 mls/hr 10/09/21 15:00 10/09/21 15:39 Dextrose IV 10/19/21 14:59 Infused Q24H KELVIN Infusion Sodium Chloride 1,000 mls @ 125 mls/hr 10/09/21 14:45 10/10/21 08:00 Nss 1000ml IV 11/08/21 14:44 125 mls/hr .Q8H KELVIN Administration Past Medical History Medical History Anemia Renal colic on left side Past Surgical History Surgical History No pertinent past surgical history Social History Smoking Status: Never smoker Do You Dip or Chew Tobacco: No Hx Alcohol Use: Yes Alcohol type: beer alcohol intake frequency: a few times a month Hx Substance Use: No substance use type: does not use Physical Exam Vital Signs Last Vital Signs Temp 36.9 C 10/10/21 11:08 Pulse 83 10/10/21 11:08 Resp 18 10/10/21 11:08 BP 146/72 H 10/10/21 11:08 Pulse Ox 97 10/10/21 11:08 Testing Laboratory Results 10/10/21 06:29 10/10/21 06:29 Urine Color Yellow 10/09/21 05:35 Urine Appearance Cloudy (Clear) A 10/09/21 05:35 Urine pH 5.5 (4.5-7.5) 10/09/21 05:35 Ur Specific [place] 1.026 (1.000-1.030) 10/09/21 05:35 Urine Protein 1+ (Negative) H 10/09/21 05:35 Urine Glucose (UA) Negative (Negative) 10/09/21 05:35 Urine Ketones Trace (Negative) H 10/09/21 05:35 Urine Nitrite Negative (Negative) 10/09/21 05:35 Ur Leukocyte Esterase Negative (Negative) 10/09/21 05:35 Urine WBC (Auto) 1-5 /hpf (0-5) 10/09/21 05:35 Urine RBC (Auto) 10-30 /hpf (0-4) H 10/09/21 05:35 U Hyaline Cast (Auto) 0 /lpf (0-5) 10/09/21 05:35 U Epithel Cells (Auto) >30 /lpf (0-5) H 10/09/21 05:35 Urine Bacteria (Auto) 1+ (Negative) H 10/09/21 05:35 Other Testing ABDOMEN AND PELVIS CT WITHOUT CONTRAST CT DOSE: 396.66 mGy.cm HISTORY: Acute left-sided flank pain with nausea left flank pain, ? stone TECHNIQUE: Multiaxial CT images of the abdomen and pelvis were performed without contrast. A dose lowering technique was utilized adhering to the principles of ALARA. COMPARISON STUDY: None. FINDINGS: Clear lung bases. No pneumatosis or pneumoperitoneum. The imaged inferior cardiac chambers are unremarkable. Limited evaluation of the solid abdominal organs without the use of IV contrast. The spleen is enlarged measuring up to 14.9 cm in length. Unremarkable pancreas, gallbladder, adrenal glands and liver. Normal right kidney. There is severe left-sided hydronephrosis with moderate hydroureter. There is an obstructing 7 x 4 x 4 mm calculus within the left ureterovesicular junction. 4 mm layering calculus within the left renal pelvis. 5 mm calculus of the interpolar left kidney. There are 2 large calculi noted within the inferior pole left kidney measuring 1.8 and 1.6 cm respectively. Mild perinephric and periureteral stranding. Decompressed urinary bladder. Unremarkable prostate. Aorta and IVC are unremarkable. No adenopathy. No bowel obstruction or bowel wall thickening. No ascites or mesenteric inflammation. Normal appendix. Mild gynecomastia. Mild endplate degenerative changes of the lower thoracic and upper lumbar spine. No acute fracture. IMPRESSION: 1. Severe left-sided hydronephrosis with moderate hydroureter secondary to an obstructing 7 x 4 x 4 mm calculus within the left ureterovesicular junction. 2. 4 mm calculus of the left renal pelvis with additional large nonobstructing left renal calculi. ACT 112: Negative or not required by law. The above report was generated using voice recognition software. It may contain grammatical, syntax or spelling errors. Electronically signed by: Renard Anthony M.D. 10/09/2021 7:41 AM Dictated:10/09/21 0735 Transcribed: 10/09/21 0735
[2021-10-10] MEDS ORDERED: ePHEDrine sulfate 50 MG/ML AMP IV PRN (11:41)
[2021-10-10] MEDS ORDERED: HYDROmorphone INJ 1 MG/ML SYRINGE IV PRN (11:41)
[2021-10-10] MEDS ORDERED: ATROPINE SULFATE 0.1 MG/ML 10ML SYR IV PRN (11:41)
[2021-10-10] MEDS ORDERED: MEPERIDINE HCL 25 MG/ML CARP/VIAL IV PRN (11:41)
[2021-10-10] MEDS ORDERED: fentaNYL citrate 100 MCG/2 ML VIAL IV PRN (11:41)
[2021-10-10] MEDS ORDERED: ONDANSETRON INJ 2 MG/ML 2 ML VIAL IV PRN (11:41)
[2021-10-10] MEDS ORDERED: LABETALOL HCL IV 5 MG/ML 20ML IV PRN (11:41)
[2021-10-10] MEDS ORDERED: PHENYLEPHRINE 100MCG/ML 5ML SYR IV PRN (11:41)
[2021-10-10] MEDS ORDERED: PROPOFOL IV EMULSION 10 MG/ML 20 ML VIAL IV ONE (12:15)
[2021-10-10] MEDS ORDERED: ONDANSETRON INJ 2 MG/ML 2 ML VIAL ONE (12:15)
[2021-10-10] MEDS ORDERED: DEXAMETHASONE SOD INJ 4 MG/ML VIAL ONE (12:15)
[2021-10-10] MEDS ORDERED: LIDOCAINE 2% 2 ML VIAL/AMP(20MG/ML) INFIL ONE (12:15)
[2021-10-10] MEDS ORDERED: fentaNYL citrate 100 MCG/2 ML VIAL ONE (12:15)
[2021-10-10] MEDS ORDERED: MIDAZOLAM HCL 1 MG/ML 2ML VIAL ONE (12:16)
--- NOTE | 2021-10-10 13:10 | Operative Report ---
PG Post Operative Report Pre & Post Diagnosis Operation Date: 10/10/21 07:50 Pre-Op Diagnosis: (1) Ureterolithiasis: (2) Hydronephrosis: (3) Renal colic on left side: Post-Op Diagnosis: (1) Ureterolithiasis: (2) Hydronephrosis: (3) Renal colic on left side: I identified the patient and participated in the time-out.: Yes Procedure Operation Date: 10/10/21 07:50 Actual Procedures p Cystoscopy, Retrograde Pyelogram, Left Stent Placement, Ureteroscopy(Left) - Edilberto Julien MD Surgeon Herson Julien MD Hydroelectric Mechanic none Estimated Blood Loss 0 Findings Consistent with Post-Op Diagnosis Specimens none Description of Procedure The patient was identified in the preoperative holding area, appropriate informed consents were reviewed and completed and the patient was transferred to the operative suite. Upon arrival, appropriate antibiotics and anesthesia were administered and the patient was placed in dorsal lithotomy position and prepped and draped in sterile fashion. To begin the case to pass a 22 English cystoscope with 30 degree lens. Inspection revealed a healthy-appearing urethra and prostate. His bladder was also healthy. There was some erythema and mounding around his left distal ureter. No stones were seen within the bladder or protruding from the orifice. Turned attention of this left UO and cannulated with a sensor wire and a 5 English open-ended catheter. Immediately after passage of the wire there is discharge of a significant amount of small stones and stone debris. After draining this out of the bladder I withdrew the cystoscope and reentered with a semirigid ureteroscope. I guided this into the distal left ureter which revealed no stones but some inflammation just at the UVJ. I advanced the scope further inside healthy-appearing ureter. After advancing to close to the level of the vessels I performed a retrograde pyelogram through the scope. This confirmed my suspicion of a left UPJ obstruction with clear demonstration of a tight UPJ. There was no significant distention of the ureter. I concluded the case by reevaluating the distal ureter and identifying no other stones. I placed a 6 English by 26 cm double-J stent and concluded. He was reversed of anesthesia and taken to the PACU in stable condition. There were no complications. Findings - 1. stone debris irrigated out of the distal left ureter 2. 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 Any exceptions are noted below.
[2021-10-10] MEDS ORDERED: DIATRIZOATE MEGLUMINE 30% 100ML VIAL INSTIL PRN (13:16)
--- NOTE | 2021-10-10 13:36 | Fluoroscopy Report ---
FL retrograde includes kub HISTORY: 21 years-old Male LT left-sided cystourethrogram COMPARISON: CT abdomen pelvis 10/09/2021 TECHNIQUE: 4 spot fluoroscopic images of the left abdomen were obtained utilizing 16 seconds fluorosc opy time FINDINGS: Retrograde injection of contrast into the left ureter demonstrates severe hydronephrosis with narrowi ng at the ureteropelvic junction. Subsequent images demonstrate deployment of a left ureteral stent w hich appears to be in satisfactory positioning. IMPRESSION: Fluoroscopic assistance as above. ACT 112: Negative or not required by law. The above report was generated using voice recognition software. It may contain grammatical, syntax o r spelling errors. Electronically signed by: Renard Anthony M.D. 10/10/2021 1:35 PM
--- NOTE | 2021-10-10 13:37 | Anesthesiology Progress Note ---
Date of Service October 10, 2021 Anesthesia Post Procedure Vital Signs Vital Signs: Temp Pulse Pulse Pulse Resp BP BP 10/10/21 13:30 69 15 140/83 10/10/21 13:20 64 15 143/83 H 10/10/21 13:12 36.2 C L 64 18 136/82 10/10/21 11:56 36.9 C 74 20 158/91 H 10/10/21 11:08 36.9 C 83 18 146/72 H 10/10/21 07:04 36.5 C 93 H 18 133/72 10/10/21 03:30 37.4 C 89 18 147/89 H 10/09/21 23:09 36.9 C 84 18 133/78 10/09/21 22:18 56 L 10/09/21 18:24 59 L 10/09/21 17:22 37.3 C 69 16 151/84 H 10/09/21 15:47 36.8 C 74 20 142/78 H 10/09/21 15:40 63 20 10/09/21 15:30 55 L 18 151/91 H 10/09/21 15:20 60 21 140/79 10/09/21 15:10 71 23 10/09/21 15:00 64 18 136/77 10/09/21 14:50 67 20 10/09/21 14:40 61 18 10/09/21 14:30 83 23 152/80 H 10/09/21 14:20 78 15 10/09/21 14:10 67 16 10/09/21 14:00 65 17 145/91 H 10/09/21 13:50 63 17 10/09/21 13:40 89 24 Pulse Ox 10/10/21 13:30 98 10/10/21 13:20 100 10/10/21 13:12 99 10/10/21 11:56 98 10/10/21 11:08 97 10/10/21 07:04 97 10/10/21 03:30 97 10/09/21 23:09 98 10/09/21 22:18 10/09/21 18:24 10/09/21 17:22 98 10/09/21 15:47 98 10/09/21 15:40 97 10/09/21 15:30 96 10/09/21 15:20 96 10/09/21 15:10 96 10/09/21 15:00 96 10/09/21 14:50 97 10/09/21 14:40 97 10/09/21 14:30 97 10/09/21 14:20 98 10/09/21 14:10 97 10/09/21 14:00 97 10/09/21 13:50 96 10/09/21 13:40 97 Pain Intensity Flank: Pain Intensity: 0 Transfer of Care Handoff Completed per policy Notes Mental Status: alert / awake / arousable Patient Amnestic to Procedure: Yes Nausea / Vomiting: adequately controlled Pain: adequately controlled Airway Patency, RR, SpO2: stable & adequate BP & HR: stable & adequate Hydration State: stable & adequate Anesthetic Complications: no major complications apparent and Pt Satisfied with anesthetic care
--- NOTE | 2021-10-10 13:45 | Hospitalist Progress Note ---
Date of Service October 10, 2021 Assessment & Plan (1) Ureterolithiasis: Plan: Patient is a 21-year-old male with ureterolithiasis 7 x 4 x 4 mm which was not passed with Flomax and fluids and now with JERSEY anticipating for stent placement Ureterolithiasis -CTAP showed severe left sided hydronephrosis and moderate hydroureter secondary to an obstructing 7 x 4 x 4 mm calculus with left ureterovesical junction. 4 mm calculus of the left renal pelvis with additional large nonobstructing left renal calculi. -WBC 16.17, creatinine 1.11. Urinalysis not overly suspicious for infection, urine C&S as below -Patient did not pass stone overnight with conservative medical treatment, has JERSEY as below Anticipate stent placement today, patient aware -Tylenol and Toradol for pain control. -On Rocephin. Urine culture less than 1000 colonies, preliminary no growth, dis continue Rocephin Covid negative (2) Pre-syncope: Plan: -Patient initially reported episode of syncope in ER, EKG showed normal sinus rhythm and echo was ordered. EF, no thrombus, normal LV In discussion with patient reports that he had a severe pain spasm, and did not lose consciousness, did not fall or hit his head likely vas ovagal/lightheadedness due to pain Defer additional evaluation for this (3) JERSEY (acute kidney injury): Plan: Creatinine normal at baseline, acutely elevated overnight to 1.46 postrenal obstructive in the setting of stone, management as above Avoid nephrotoxins Repeat BMP post procedure/a.m. Plan: DVT prophylaxis: Lovenox CODE STATUS: Full code Diet: N.p.o. regular if doing well postop Discussion: Medical/surgical Admission and Anticipated Discharge Date Admission Date: October 09, 2021 Subjective Seen at bedside this morning, has not had stone passage and continues to have intermittent severe left flank pain although he is doing okay with 2/10 pain at time of bedside visit in the morning. Denies fever, chills, sweats, chest pain, chest pressure. No nausea/vomiting/diarrhea/constipation. Continues to urinate, no overt blood some burning. Seen by urology this morning, anticipate stone placement. Aware creatinine elevated today with leukocytosis. Review of Systems Review of Systems: All systems reviewed & are unremarkable except as noted in Subjective Physical Exam Physical Exam: General: A&Ox3. NAD. Cooperative. Nontoxic. HEENT: Atraumatic, normocephalic. Visual acuity and hearing grossly intact. Pulm: CTAB A&P. -wheezes, -rales, -rhonchi. Symmetrical chest rise. No increase in work of breathing. No respiratory distress. Cardiac: RRR, -mrg. Radial pulses intact and symmetrical. Abdominal: Left flank tenderness not worsened with palpation, no CVA tenderness. Abdomen nondistended, soft. BS present. Extremities: Warm, dry. Moving all extremities equally. PT/radial pulses intact and symmetrical Results & Data Results & Data ([facility]) Vital Signs (Past 12 Hours) Vital Signs Temp Pulse Pulse Resp BP Pulse Ox 10/10/21 13:30 69 15 140/83 98 10/10/21 13:20 64 15 143/83 H 100 10/10/21 13:12 36.2 C L 64 18 136/82 99 10/10/21 11:56 36.9 C 74 20 158/91 H 98 10/10/21 11:08 36.9 C 83 18 146/72 H 97 10/10/21 07:04 36.5 C 93 H 18 133/72 97 10/10/21 03:30 37.4 C 89 18 147/89 H 97 PG Care Time/CCT Total # of Minutes Spent Total Time Spent with Patient: Total time spent is greater than 50% in coordination of care (as documented) at patient's floor/unit and/or counseling patient: Coding Level of Care Code 53697 Subseq Hosp Care Lvl 2 Diagnoses Ureterolithiasis N20.1 Pre-syncope R55 JERSEY (acute kidney injury) N17.9
[2021-10-10] MEDS: cefTRIAXone SODIUM 2,000 MG in DEXTROSE 5% 50 ML IV SCH (16:04)
[2021-10-10] MEDS ORDERED: TAMSULOSIN HCL 0.4 MG CAP PO SCH (21:00)
[2021-10-10] MEDS: ENOXAPARIN INJ 40 MG/0.4 ML SYR SQ SCH (21:01)
--- NOTE | 2021-10-11 08:21 | Urology Progress Note ---
Date of Service October 11, 2021 Assessment & Plan (1) Ureterolithiasis: (2) Hydronephrosis: (3) JERSEY (acute kidney injury): Plan: 21 yo M POD #1 s/p cystoscopy, Retrograde Pyelogram, Left Stent Placement, left Ureteroscopy with Dr. Julien. - Doing well, progressing as expected - feels ready for discharge today - Afebrile, lab work reviewed - creatinine improved to 0.87 today - Tolerating left ureteral stent without bother, has not utilized prn pain medication post op - Voiding without difficulty - Okay to d/c from perspective when medically stable - Recommend d/c with course Tamsulosin, prn Pyridium and prn pain medication for stent management - Expected clinical course reviewed, all questions answered - Will arrange outpatient follow-up with our service for stent removal Thank you for allowing us to participate in the acute care of Mr. Magana. Please reconsult us with additional questions, concerns or changes in patient status. Admission and Anticipated Discharge Date Admission Date: October 10, 2021 Supervising Physician Co-Signing Physician Notes I have discussed Mr. Magana's case with ESPERANZA Yi and agree with the above documentation. Should be ready for discharge home today. We will arrange follow-up in the urology office for stent removal and to discuss UPJ obstruction. Subjective Pt seen and examined today at bedside. Awake, alert and sitting up in bed. No acute issues overnight. Subjectively feeling well. Denies flank or abdominal discomfort. Voiding without difficulty, no dysuria or hematuria. Tolerating diet, no nausea or vomiting. No fever or chills. Offers no additional complaints at present. Review of Systems Constitutional: as per Subjective / HPI Gastrointestinal: as per Subjective / HPI Genitourinary: + as per Subjective / HPI Physical Exam Constitutional: well developed and well nourished; no acute distress and not ill appearing Neck: normal visual inspection Respiratory: normal respiratory effort and able to speak in complete sentences; no respiratory distress and no labored breathing Cardiovascular: Extremities: no pedal edema Gastrointestinal (Abdomen): Inspection/Auscultation: abdomen normal to inspection; abdomen not distended Neurologic: moves all extremities and awake Psychiatric: Orientation: alert, oriented x 3 and cooperative Eye Contact: good eye contact Results & Data ([facility]) Vital Signs (Past 12 Hours) Vital Signs Temp Pulse Resp BP Pulse Ox 10/11/21 06:35 36.5 C 56 L 18 130/69 98 10/11/21 03:06 36.7 C 64 18 109/61 97 10/10/21 22:16 37.2 C 59 L 18 125/74 98 PG Care Time/CCT Total # of Minutes Spent Total Time Spent with Patient: Total time spent is greater than 50% in coordination of care (as documented) at patient's floor/unit and/or counseling patient: Coding Level of Care Code 30453 Subseq Hosp Care Lvl 2 Diagnoses Ureterolithiasis N20.1 Hydronephrosis N13.2 Hydronephrosis type: with ureteral calculous obstruction JERSEY (acute kidney injury) N17.9 (1) Hydronephrosis Hydronephrosis type: with ureteral calculous obstruction Qualified Code(s): N13.2 - Hydronephrosis with renal and ureteral calculous obstruction
[2021-10-11 09:09] LABS: BUN Creatinine Ratio 12.6 (10-20); Calcium 9.3 mg/dl (8.5-10.1); Creatinine Clr Calc Pharmacy 153.5 ml/min; Est GFR (Non-African American) 121.7 ml/min; Potassium 3.8 mmol/L (3.5-5.1)
--- NOTE | 2021-10-11 14:12 | Discharge Summary ---
Date of Service October 11, 2021 Admission HPI Per Admitting Provider Patient is a previously healthy 21-year-old male who presents today with severe left flank pain and was found to have calculus within the left UVJ with severe left-sided hydronephrosis with moderate hydroureter. Urology was consulted and saw patient, recommend discharge with Flomax, pain control and urine strainer. On discharge, patient stood up and had a near syncopal episode. Patient states he felt dizzy and nauseous, but did not pass out. Patient was assisted back onto the bed and giving Gatorade, which he was able to keep down. Patient is feeling much better. Hospitalist service was consulted for evaluation and admission. EKG was crested which shows normal sinus rhythm, 64 bpm, no ectopy, no acute ST segment abnormalities. Patient states he has had occasional moments similar to this upon standing after being seated for some time. Denies cardiac history, denies chest pain, palpitations, shortness of breath, headache, dizziness. States he was feeling quite nauseous and experiencing mid pain at that time. Principal Diagnosis Obstructing uretolithiasis Discharge Exam General: A&Ox3. NAD. Cooperative. Nontoxic. HEENT: Atraumatic, normocephalic. Visual acuity and hearing grossly intact. Pulm: CTAB A&P. -wheezes, -rales, -rhonchi. Symmetrical chest rise. No increase in work of breathing. No respiratory distress. Cardiac: RRR, -mrg. Radial pulses intact and symmetrical. Abdominal: Nontender today. Abdomen nondistended, soft. BS present. Extremities: Warm, dry. Moving all extremities equally. PT/radial pulses intact and symmetrical Discharge Data Allergies Allergy/AdvReac Type Severity Reaction Status Date / Time No Known Allergies Allergy Unverified 10/09/21 08:15 Consultations 10/09/21 07:37 Consult Urology Stat 10/09/21 12:55 ED Decision to Admit Stat Procedures Performed Operation Date: 10/10/21 07:50 Actual Procedures p Cystoscopy, Retrograde Pyelogram, Left Stent Placement, Ureteroscopy(Left) - Edilberto Julien MD Ordered Studies 10/09/21 05:31 CT abd pelvis wo con Urgent 10/10/21 [place] retrograde includes kub Routine Hospital Course (1) Ureterolithiasis: Patient is a 21-year-old male with ureterolithiasis 7 x 4 x 4 mm which was not passed with Flomax and fluids to underwent uncomplicated stent placement following development of JERSEY with subsequent normalization of his creatinine To do as outpatient: 1. Follow-up with urology 2. Continue Flomax 0.4 mg by mouth daily 3. Routine follow-up with PCP Ureterolithiasis -CTAP showed severe left sided hydronephrosis and moderate hydroureter secondary to an obstructing 7 x 4 x 4 mm calculus with left ureterovesical junction. 4 mm calculus of the left renal pelvis with additional large nonobstructing left renal calculi. Status post cystoscopy and stent placement 10/10, uncomplicated with stone removal and resolution of symptoms -Treated with empiric Rocephin periprocedurally, discontinued and UC with growth less than 1000 colonies Covid negative (2) Pre-syncope: -Patient initially reported episode of syncope in ER, EKG showed normal sinus rhythm and echo was ordered. EF, no thrombus, normal LV In discussion with patient reports that he had a severe pain spasm, and did not lose consciousness, did not fall or hit his head likely vasovagal/lightheadedness due to pain Defer additional evaluation for this (3) JERSEY (acute kidney injury): Creatinine normal at baseline, acutely elevated overnight to 1.46 postrenal obstructive in the setting of stone, management as above Avoid nephrotoxins DVT prophylaxis: Lovenox CODE STATUS: Full code Diet: N.p.o. regular if doing well postop Discussion: Medical/surgical Total Time Total Time Spent Total Time Spent (In Minutes): Time spend day of discharge 20 minutes including direct patient care, documentation, review of labs and images, and coordination of care. Discharge Plan Discharge Items Patient Disposition: Home - Self-Care Reason For Visit: left flank pain Discharge Diagnosis: Uretolithiasis Condition on Discharge: Good Activity: Per Instructions section Non-emergency contact: Primary Care Provider and Urologist Call non-emergency contact if: you have any medication questions, your symptoms worsen, your pain is not controlled, your pain is worsening and your pain is unusual for you Follow-up/Referrals: Mich Hurst MD [Physician] - [facility] [Primary Care Provider] - Diet: Regular Addtl Attending Provider Instructions: You were seen in the hospital for a obstructing kidney stone with a kidney injury due to increased pressure from the blockage of your stone. You had a stent placed with resolution of your symptoms. You will need follow-up with urology which is being scheduled for you as noted above. [facility] 2 [facility]. You had blood work drawn which showed return of your kidney function to normal. Your pain had completely resolved at time of discharge. You may take Azo 100mg up to every eight hours and tylenol 500mg every 6 hours as needed for pain should it recur. You have been prescribed tamsulosin 0.4mg daily while your stend remains in place. Your urologist will make further recommendations regarding this medication at your followup appointment. If you develop any new or worsening symptoms including fever, chills, sweats, chest pain, chest pressure, difficulty breathing, uncontrolled nausea/vomiting, rash, wheezing, passing out or nearly passing out, bleeding, black/bloody bowel movements, or other new or concerning symptoms please call your primary care physician, Urologist, or call 911 for re-evaluation in the emergency department if you are very concerned. Pending Studies at Discharge: No Stand-Alone Forms: My [facility] Information [employer], Smoking Cessation Medications and DC Order Prescriptions: New tamsulosin 0.4 mg capsule 0.4 mg PO DAILY Qty: 14 RF: 0 phenazopyridine [Pyridium] 100 mg tablet 100 mg PO Q8H PRN (Reason: pain) Qty: 6 RF: 0 Discharge Orders: Discharge Order (Routine); Ordered 10/11/21 Ordered By: Ventura Song Admission Data Admit Date/Time: 10/10/21 18:40 Attending Provider: Ventura Song Admit Provider: Ventura Song Primary Care Provider: [facility] Other Providers: Mich Hurst ; Ventura Song Other Interventions: Discharge Summary Assessment (RN) Last Done: 10/11/21 09:15 Coding Level of Care Code D/C DAY MANAGEMENT <30 MINS Diagnoses Ureterolithiasis N20.1 Pre-syncope R55 JERSEY (acute kidney injury) N17.9
== END 2021-10-11 09:49 | disposition home or self-care (01) | DRG 660 ==
LOC: ED 05:18 → EDINP 05:18 → 2N 17:38
DX: E86.0 Dehydration; R55 Syncope and collapse; N13.0 Hydronephrosis with ureteropelvic junction obstruction; Q62.11 Congenital occlusion of ureteropelvic junction; N13.2 Hydronephrosis with renal and ureteral calculous obstruction; Z20.822 Contact with and (suspected) exposure to COVID-19; N13.4 Hydroureter; N17.9 Acute kidney failure, unspecified